=== PATIENT | male | born 1945 ===

== ENCOUNTER 2017-01-31 14:26 | Outpatient (CLI) | payer MEDICARE, OTHER | END 2017-01-31 14:27 | disposition home or self-care (01) | LOC: LABHHL 14:26 | PROVIDERS: ATTEND Internal Medicine Gastroenterology | DX: D12.3 Benign neoplasm of transverse colon (principal); D12.0 Benign neoplasm of cecum; D12.2 Benign neoplasm of ascending colon | CPT/HCPCS: 88305 ==